=== PATIENT | female | born 1990 | race African-American/Black ===

== ENCOUNTER → 2020-05-03 | Outpatient (CLI) | payer OTHER ==
--- NOTE | 2020-05-12 18:15 | PF ---
[address] [address] PULMONARY FUNCTION REPORT Name: ERICA MAXWELL Room: [facility]#: [id number] Admission: 05/03/20 Attend Phys: Varun Cannon MD Discharge: Date of : 89 Report #: [id number] THIS REPORT FOR: //name// CC: Varun Cannon [facility] physician/PCP DATE OF SERVICE: 05/03/2020 The FEV1/FVC ratio is normal at 70% with a forced vital capacity mildly decreased to 76%. The FEV1 is decreased to 64%. The [id number] is decreased to 41%. After the administration of a bronchodilator, there is no significant increase in any of these values. The patient's FEV1 is noted to be 2.30 liters. It does not increase after the administration of a bronchodilator. Only a spirometry was performed. IMPRESSION: There is a moderate restrictive pattern noted on spirometry. Underlying obstruction, neuromuscular weakness or poor effort can also lead to this picture. If clinically indicated, then a full pulmonary function test with lung volumes can be considered further. <ELECTRONICALLY SIGNED> By: Prakash Adams MD 05/12/20 1815 04 49Prakash Adams MD /nt
== END ==
LOC: M.PUL 11:30
PROVIDERS: ATTEND Orthopaedic Surgery
DX: R94.2 Abnormal results of pulmonary function studies (principal); R06.02 Shortness of breath